=== PATIENT | male | born 1950 | race Caucasian/White ===

== ENCOUNTER → 2016-12-01 | Outpatient (CLI) | payer OTHER ==
--- NOTE | 2016-12-01 11:48 | DIAGNOSTIC IMAGING REPORT ---
PROCEDURE: MR CERVICAL SPINE W/O CONT INDICATION: CERVICAL RADICULOPATHY TECHNIQUE: Noncontrast T1, T2, and STIR sagittal images. T2 and gradient axial images. COMPARISON: None. FINDINGS: C5-7 anterior cervical fusion. Normal alignment without fracture or suspicious osseous lesions. Normal craniocervical junction and cervical cord. C2-3: Small disc bulge. Left uncovertebral degenerative changes and left facet arthropathy resulting in mild left foraminal stenosis. No spinal stenosis. C3-4: Small disc bulge and bilateral facet arthropathy resulting in moderate bilateral foraminal stenosis. No spinal stenosis. C4-5: Normal disc. Right uncovertebral degenerative changes and right facet arthropathy resulting in moderate right foraminal stenosis. There is no spinal stenosis. C5-6: Right posterior susceptibility artifacts but no of obvious disc bulge. No foraminal or spinal stenosis. C6-7: Moderate right foraminal disc bulge/spur complex with facet arthropathy. There is severe right and moderate left foraminal stenosis. No spinal stenosis. C7-T1: Small disc bulge. No foraminal or spinal stenosis. IMPRESSION: 1. Anterior C5-7 surgical fusion 2. Mild left C2-3, moderate bilateral C3-4, moderate right C4-5 foraminal stenosis 3. Right C6-7 foraminal disc bulge/spur complex with severe right and moderate left foraminal stenosis.
== END ==
LOC: MRI SRH 09:06
DX: M50.223 Other cervical disc displacement at C6-C7 level (principal); M48.02 Spinal stenosis, cervical region; Z98.1 Arthrodesis status